=== PATIENT | female | born 1940 | race Caucasian/White ===

== ENCOUNTER 2023-02-20 10:28 | Outpatient (CLI) | payer MEDICARE, BC | END 2023-02-20 10:29 | disposition home or self-care (01) | LOC: RAD 10:28 | PROVIDERS: ATTEND Internal Medicine Cardiovascular Disease | DX: R06.02 Shortness of breath (principal) | CPT/HCPCS: 71046 ==

== ENCOUNTER 2024-12-13 09:40 | Outpatient (CLI) | payer MEDICARE, BC | END 2024-12-13 09:41 | disposition home or self-care (01) | LOC: SCSBT 09:40 | PROVIDERS: ATTEND Family Medicine | DX: M81.0 Age-related osteoporosis without current pathological fracture (principal) | CPT/HCPCS: 77080 ==